=== PATIENT | female | born 1990 | race Caucasian/White ===

== ENCOUNTER 2017-01-16 13:21 | Emergency (ER) | payer OTHER ==
[~2017-01-16] VITALS: Ht 154.9 cm; Wt 47.2 kg
[2017-01-16 14:05] VITALS: BP 127/94; PULSE 90; RESP 16; TEMP 98.1; O2SAT 95
--- NOTE | 2017-01-16 15:10 | NUR ---
Patient to [facility] for evaluation. Side rails up. Report given to LASHAY Meng.
[2017-01-16] MEDS ORDERED: methylPREDNISolone SOD SUCC/PF 62.5 MG/ML VIAL IM ONE (15:15)
[2017-01-16] MEDS ORDERED: FAMOTIDINE 20 MG TABLET PO ONE (15:15)
--- NOTE | 2017-01-16 15:15 | NUR ---
MATTHIAS Pappas in hallway examining patient
--- NOTE | 2017-01-16 15:19 | NUR ---
Pt came into the ER in stable condition. Pt c/o generalized rash x1wk. Pt stated that she saw dehairer today and was given 40mg IM of Kenalog at 1100. Pt c/o difficulty breathing about 40 minutes after IM injection. -sob at this time. -chest pain. No acute distress noted at this time, will continue to monitor
[2017-01-16 15:36] VITALS: BP 127/94; PULSE 90; RESP 16; TEMP 98.1; O2SAT 95
--- NOTE | 2017-01-16 15:36 | NUR ---
Patient given written and verbal discharge instructions and verbalizes understanding. ER SUBEDITOR Elyse discussed with patient the results and treatment provided. Patient in stable condition. ID arm band removed. Rx of Pepcid, Bendadryl and Prednisone given. Patient educated on pain management and to follow up with PMD. Pain Scale 0/10. Opportunity for questions provided and answered.
== END 2017-01-16 15:36 | disposition home or self-care (01) ==
LOC: SED 13:21
DX: L50.9 Urticaria, unspecified (principal); Z87.2 Personal history of diseases of the skin and subcutaneous tissue
CPT/HCPCS: 96372; 99283; J2930